=== PATIENT | male | born 1980 | race Asian ===

== ENCOUNTER 2017-02-10 23:35 | Emergency (ER) | payer BC ==
[~2017-02-10] VITALS: Ht 172.7 cm; Wt 81.6 kg
[2017-02-10 23:54] VITALS: BP 106/64
[2017-02-11] MEDS ORDERED: HYDROCODONE/APAP 5/325MG 1 EACH TABLET PO ONE (02:00)
[2017-02-11] MEDS ORDERED: HYDROCODONE/APAP 5/325MG 1 EACH TABLET ONE (02:01)
== END 2017-02-11 03:15 | disposition home or self-care (01) ==
LOC: ER 23:35
DX: S93.402A Sprain of unspecified ligament of left ankle, initial encounter (principal); S93.602A Unspecified sprain of left foot, initial encounter; X58.XXXA Exposure to other specified factors, initial encounter; Y93.39 Activity, other involving climbing, rappelling and jumping off; Y92.89 Other specified places as the place of occurrence of the external cause; Y99.9 Unspecified external cause status
CPT/HCPCS: 73610-TC; 73630-TC; A4606; Z7610